=== PATIENT | female | born 1995 | race African-American/Black ===

== ENCOUNTER 2017-02-17 04:08 | Emergency (ER) | payer OTHER ==
[2017-02-17 04:31] LABS: HEMATOCRIT 36.7 % (36.0-48.0); HEMOGLOBIN 12.2 g/dL (12-16); LYMPHOCYTES 29.5 % (15-50); MCH 29.5 pg (26.0-34.0); MCHC 33.2 g/dL (31.0-37.0); MCV 88.9 fL (80.0-100.0); MEAN PLATELET VOLUME 10.3 fL (7.4-10.4); NEUTROPHILS 61.1 % (40-80); PLATELET COUNT 212 10x3/uL (130-400); RBC 4.13 10x6/uL (4.00-5.40); RDW 12.8 % (11.5-14.5); WBC 8.1 10x3/uL (4.8-10.8)
[2017-02-17 04:32] LABS: APPEARANCE HAZY (CLEAR); BACTERIA NONE SEEN /hpf (NONE SEEN); BILIRUBIN NEGATIVE (NEGATIVE); COLOR YELLOW (YELLOW); EPITHELIAL CELLS RARE /hpf (0-5); GLUCOSE NEGATIVE (NEGATIVE); KETONE NEGATIVE (NEGATIVE); NITRITE NEGATIVE (NEGATIVE); PROTEIN NEGATIVE (NEGATIVE); RED CELLS - URINE 0-5 /hpf (0-5); UROBILINOGEN NORMAL (NORMAL); WHITE CELLS - URINE 0-5 /hpf (0-5)
[2017-02-17 04:44] LABS: HCG SERUM NEGATIVE (NEGATIVE)
[2017-02-17 04:52] LABS: ALKALINE PHOSPHATASE 71 U/L (46-116); ALT (SGPT) 18 U/L (10-68); BILIRUBIN - TOTAL 0.21 mg/dL (0.2-1.3); CALC OSMOLALITY 271 mosm/kg (275-300); CALCIUM 8.8 mg/dL (8.5-10.1); CHLORIDE - SERUM 103 mmol/L (98-107); CREATININE - SERUM 0.8 mg/dL (0.6-1.3); GLUCOSE 88 mg/dL (74-106); POTASSIUM - SERUM 3.9 mmol/L (3.5-5.1); PROTEIN - SERUM 7.2 g/dL (6.4-8.2); SODIUM 137 mmol/L (136-145); UREA NITROGEN 10 mg/dL (7-18); eGFR NON AFRICAN AMERICAN > 90 mL/min (90-120)
== END 2017-02-17 05:14 | disposition home or self-care (01) ==
LOC: D.ER 04:08
PROVIDERS: Emergency Medicine
DX: R10.9 Unspecified abdominal pain (principal); N93.9 Abnormal uterine and vaginal bleeding, unspecified; F17.200 Nicotine dependence, unspecified, uncomplicated

== ENCOUNTER → 2017-03-17 12:24 | Outpatient (CLI) | payer MEDICAID | END | disposition home or self-care (01) | LOC: D.US 12:24 | DX: N64.4 Mastodynia (principal) ==

== ENCOUNTER → 2018-02-20 11:58 | Outpatient (CLI) | payer BC ==
[2018-02-20 13:35] LABS: APPEARANCE CLEAR (CLEAR); BACTERIA FEW /hpf (NONE SEEN); BILIRUBIN NEGATIVE (NEGATIVE); COLOR YELLOW (YELLOW); EPITHELIAL CELLS OCC /hpf (0-5); GLUCOSE NEGATIVE (NEGATIVE); KETONE NEGATIVE (NEGATIVE); NITRITE NEGATIVE (NEGATIVE); PROTEIN NEGATIVE (NEGATIVE); RED CELLS - URINE OCC /hpf (0-5); UROBILINOGEN NORMAL (NORMAL); WHITE CELLS - URINE 0-5 /hpf (0-5)
[2018-02-20 13:36] LABS: MUCUS <1+ /lpf (NONE SEEN)
[2018-02-25 03:06] LABS: CHLAMYDIA TRACHOMATIS, NAA Negative (Negative)
== END | disposition home or self-care (01) ==
LOC: D.LDO 11:58
PROVIDERS: Obstetrics & Gynecology
DX: O26.893 Other specified pregnancy related conditions, third trimester (principal); Z3A.33 33 weeks gestation of pregnancy

== ENCOUNTER → 2018-03-15 14:36 | Outpatient (CLI) | payer MEDICAID | END | disposition home or self-care (01) | LOC: D.LDO 14:36 | DX: O26.893 Other specified pregnancy related conditions, third trimester (principal); Z3A.37 37 weeks gestation of pregnancy ==

== ENCOUNTER 2018-03-23 23:53 | Outpatient (CLI) | payer MEDICAID ==
[2018-03-24 00:52] LABS: UDS - AMPHET NEGATIVE QUAL (NEGATIVE); UDS - BARB NEGATIVE QUAL (NEGATIVE); UDS - BENZO NEGATIVE QUAL (NEGATIVE); UDS - COCAINE NEGATIVE QUAL (NEGATIVE); UDS - OPIATE NEGATIVE QUAL (NEGATIVE); UDS - PCP NEGATIVE QUAL (NEGATIVE); UDS - THC NEGATIVE QUAL (NEGATIVE)
[2018-03-24 00:54] LABS: APPEARANCE HAZY (CLEAR); BILIRUBIN NEGATIVE (NEGATIVE); COLOR YELLOW (YELLOW); GLUCOSE NEGATIVE (NEGATIVE); KETONE NEGATIVE (NEGATIVE); NITRITE NEGATIVE (NEGATIVE); PROTEIN NEGATIVE (NEGATIVE); SPECIFIC GRAVITY 1.015 (1.005-1.020); UROBILINOGEN NORMAL (NORMAL)
[2018-03-24 00:58] LABS: BACTERIA MANY /hpf (NONE SEEN); EPITHELIAL CELLS 0-5 /hpf (0-5); RED CELLS - URINE 0-5 /hpf (0-5)
[2018-03-25] MEDS ORDERED: FERROUS SULFAT325 MG PO (06:14)
[2018-03-25 13:33] VITALS: BMI 27.5
== END 2018-03-24 01:12 ==
LOC: D.LDO 23:53 → D.LD 23:53 → D.LDO 03-24 01:12
PROVIDERS: Obstetrics & Gynecology
DX: O26.893 Other specified pregnancy related conditions, third trimester (principal); Z3A.38 38 weeks gestation of pregnancy

== ENCOUNTER 2018-03-25 04:51 | Inpatient (IN) | payer MEDICAID ==
[~2018-03-25] VITALS: Ht 162.6 cm; Wt 72.6 kg
[2018-03-25 05:52] LABS: HEMATOCRIT 29.8 % (36.0-48.0); HEMOGLOBIN 9.3 g/dL (12-16); MCH 25.3 pg (26.0-34.0); MCHC 31.2 g/dL (31.0-37.0); MEAN PLATELET VOLUME 12.9 fL (7.4-10.4); RBC 3.68 10x6/uL (4.00-5.40); RDW 14.9 % (11.5-14.5)
[2018-03-25] MEDS ORDERED: FERROUS SULFAT325 MG PO (06:14)
[2018-03-25 09:01] LABS: UDS - AMPHET NEGATIVE QUAL (NEGATIVE); UDS - BARB NEGATIVE QUAL (NEGATIVE); UDS - BENZO NEGATIVE QUAL (NEGATIVE); UDS - COCAINE NEGATIVE QUAL (NEGATIVE); UDS - OPIATE NEGATIVE QUAL (NEGATIVE); UDS - PCP NEGATIVE QUAL (NEGATIVE); UDS - THC NEGATIVE QUAL (NEGATIVE)
[2018-03-25 13:33] VITALS: BP 127/77; Ht 162.6 cm; Wt 72.6 kg
--- NOTE | 2018-03-25 15:15 | NUR ---
DR SWARTZ CALLED AND NEW ORDERS WERE RECEIVED FOR CHANGE IN PATIENT MEDICATIONS. TYLENOL 1000 MG DC'D. PERCOCET 5 MG 1 PO NOW, TYLENOL #3 1 PO Q4 HOURS PRN. ORDERS WERE READ BACK TO WHO CONCURRED. ORDERS WERE PLACED IN [facility].
--- NOTE | 2018-03-25 15:20 | NUR ---
CALLED FIRE SAFETY MANAGER LIGHT REQUESTING TO GET UP TO BR. ABLE TO MOVE LE WITHOUT DIFFICULTY, LIFT BUTTOCKS OFF BED. DENIES NUMBNESS OR TINGLING. CURRENTLY HOLDING IN ARMS. VISITORS IN ROOM. PT SAT UP ON EDGE OF BED WITHOUT DIFFICULTY. EPIDURAL CATHETER REMOVED WITH TIP INTACT. AMBULATED TO BATHROOM, RUBRA SMALL TO MOD. VOIDED 1000 ML URINE. PERICARE COMPLETED BY PT WITH WARM WATER AND BETADINE. RETURNED TO BED.
--- NOTE | 2018-03-25 15:33 | NUR ---
C/O PERINEAL ACHING PRESSURE 8/10. ONE TIME ORDER FOR PERCOCET 5 MG GIVEN PO FOR RELIEF. WILL TRANSFER TO CLEAN ROOM WHEN AVAILABLE, CLEAN PERIPAD WERE PLACED AND CLEAN UNDERWEAR ON WHEN IN BATHROOM. TUCKS AND DERMOPLAST SPRAY IN ROOM. INSTRUCTED ON USE. FRESH ICE PACK GIVEN. SIDE RAILS UP X 2, CALL LIGHT IN REACH.
--- NOTE | 2018-03-25 16:45 | NUR ---
TRANSFERRED TO CLEAN ROOM 1273. AMBULATED WITHOUT DIFFICULTY. ALL BELONGINGS REMOVED FROM CURRENT ROOM. VISITORS X 3 ASSISTING WITH MOVE. SAYS HER PAIN IS BETTER. NOW 05/27. REMINDED TO USE TUCKS PADS OR DERMOPLAST SPRAY WHEN SHE GETS UP TO BR. VERBALIZED UNDERSTANDING. IN ROOM WITH PT.
--- NOTE | 2018-03-25 19:16 | NUR ---
RN AT PT BS WITH Aleksandar GREEN RN FOR BEDSIDE SHIFT REPORT. RN ASSISTED PT WITH POSITIONING FOR BREASTFEED. PT DENIES ANY FURTHER NEEDS AT THIS TIME. BED IN LOW POSITION, SIDE RAILS UP TIMES 2, CALL LIGHT AND PHONE IN REACH. FAMILY TIMES 3 AT BS FOR SUPPORT AND ASSISTANCE. INFANT REMAINS AT PT BS FOR COUPLET CARE. WILL CONT TO MONITOR PT STATUS.
--- NOTE | 2018-03-25 19:35 | NUR ---
RN AT PT BS. PT SITTING IN BED IN HIGH FOWLERS POSITION, INFANT. PT IN NO ACUTE DISTRESS. 18G SL TO LEFT FA FLUSED AT THIS TIME WITH 5 CC NS WITOUT DIFFICULTY. NO REDNESS, EDEMA, OR DRAINAGE NOTED TO SITE. IVPB OF 250 MG IRON STARTED TO INFUSE VIA PUMP AT 137 ML/HR PER ORDER. IRON INFUSION HUNG WITH 250ML NS MAINLINE. PT C/O PAIN, RATES 7/10, REQUESTS MEDICATION. 1 TAB TYLENOL WITH CONDIENE PROVIDED TO PT AT THIS TIME PER ORDER. WATER MUG REFRESHED. PT DENIES ANY FURTHER NEEDS. BED IN LOW POSITION, SIDE RAILS UP TIMES 2, CALL LIGHT AND PHONE IN REACH. FAMILY TIMES 2 REMAINS AT PT BS FOR SUPPORT AND ASSISTANCE. INFANT REMAINS AT PT BS FOR COUPLET CARE. WILL RETURN TO PERFORM EVERTON WHEN EFFORT IS COMPLETE.
--- NOTE | 2018-03-25 19:45 | NUR ---
RN TO PT BS TO CHECK IVPB INFUSION. INFUSING WITHOUT DIFFICULTY. WILL CONT TO MONITOR.
[2018-03-25 20:15] VITALS: BP 107/65
--- NOTE | 2018-03-25 20:15 | NUR ---
RN TO PT BS FOR EVERTON. PT RESTING IN BED IN HIGH FOWLERS POSITION, TALKING ON PHONE, IN NO ACUTE DISTRESS. PT DISCONNECTS PHONE AND RN PROCEEDS WITH EVERTON. PT IS A 22 YO G2 NOW WITH OF VIABLE FEMALE INFANT TODAY @ 1142. @ 38.3WKS GESTATION. PT WITH 2ND DEGREE LACERATION S/P REPAIR. AAOX3. HR REGULAR. LUNGS CTAB. ABDOMEN SOFT AND NON TENDER. BS ACTIVE TIMES 4. FUNDUS FIRM AND ML @ U. LEON PAD AND PANTIES IN PLACE. PERINIUM APPEARS TO BE INTACT WITH MINIMAL SWELLING NOTED. LOCHIA RUBRA SCANT. PT DENIES DIFFICULTY VOIDING. PT STATES SHE HAS PASSED GAS SINCE BUT HAS NOT HAD A BM SINCE . NO EDEMA NOTED TO UPPER OR LOWER EXTREMITIES BILATERALLY. IRON INFUSING VIA PUMP @ 137 ML/HR TO EXISTING 18G IV IN LEFT FA. NO REDNESS, EDEMA, OR DRAINAGE NOTED TO SITE. PT RATES PAIN 4/10 AFTER ADMINISTRATION OF TYLENOL WITH CODEINE. PT DENIES ANY NEED AT THIS TIME. BED IN LOW POSITION, SIDE RAILS UP TIMES 2, CALL LIGHT AND PHONE IN REACH. NO FAMILY AT BS AT THIS TIME. REMAINS AT PT BS FOR COUPLET CARE. WILL CONT TO MONITOR PT STATUS.
--- NOTE | 2018-03-25 21:04 | NUR ---
RN TO PT BS. PT RESTING IN BED IN SEMI-FOWLERS POSITION, IN NO ACUTE DISTRESS. PT PROVIDED WITH SCHEDULED DOSE OF MOM. PT DENIES ANY FURTHER NEEDS AT THIS TIME. NO FAMILY AT BS. REMAINS AT PT BS FOR SUPPORT AND ASSISTANCE. BED IN LOW POSITION, SIDE RAILS UP TIMES 2, CALL LIGHT AND PHONE IN REACH. WILL CONT TO MONITOR PT STATUS.
--- NOTE | 2018-03-25 21:31 | NUR ---
RN TO PT BS. PT ASSISTED TO BR WITH IV POLE. PT DENIES ANY FURTHER NEEDS AT THIS TIME. WILL CONT TO MONITOR PT STATUS. REMAINS AT PT BS FOR COUPLET CARE.
--- NOTE | 2018-03-25 22:05 | NUR ---
RN TO PT BS. PT SITTING IN BED IN HIGH FOWLERS POSITION, INFANT. PT IN NO ACUTE DISTRESS. INFUSION OF IRON COMPLETE. IV SALINE LOCKED AT THIS TIME. PT DENIES ANY NEEDS. BED IN LOW POSITION, SIDE RAILS UP TIMES 2, CALL LIGHT AND PHONE IN REACH. FAMILY TIMES 1 AT PT BS FOR SUPPORT AND ASSISTANCE. INFANT REMAINS AT PT BS FOR COUPLET CARE. WILL CONT TO MONITOR PT STATUS.
[2018-03-25 23:39] VITALS: BP 113/67
--- NOTE | 2018-03-25 23:40 | NUR ---
RN TO PT BS FOR ROUNDS. PT RESTING IN BED IN SEMI-FOWLERS POSITION, IN NO ACUTE DISTRESS. PT C/O PAIN, RATES 9, REQUESTS MEDICATION. 1 TAB TYLENOL WITH CODEINE PROVIDED TO PT AT THIS TIME. WATER MUG REFRESHED. VS TAKEN AND WNL. PT DENIES ANY FURTHER NEEDS. BED IN LOW POSITION, SIDE RAILS UP TIMES 2, CALL LIGHT AND PHONE IN REACH. FAMILY TIMES 1 REMAINS AT PT BS FOR SUPPORT AND ASSISTANCE. WILL CONT TO MONITOR PT STATUS.
--- NOTE | 2018-03-26 00:37 | NUR ---
RN TO PT BS TO REASSESS PT PAIN. PT RESTING IN BED IN SEMI-FOWLERS POSITION, . PT REPORTS HER PAIN IS NOW 3/10. PT DENIES ANY NEEDS AT THIS TIME. BED IN LOW POSITION, SIDE RAILS UP TIMES 2, CALL LIGHT AND PHONE IN REACH. FAMILY TIMES 1 REMAINS AT PT BS FOR SUPPORT AND ASSISTANCE. INFANT REMAINS AT PT BS FOR COUPLET CARE. WILL CONT TO MONITOR PT STATUS.
--- NOTE | 2018-03-26 02:02 | NUR ---
RN TO PT BS FOR ROUNDS. PT RESTING IN BED IN SEMI-FOWLERS POSITION, WITH EYES CLOSED, IN NO ACUTE DISTRESS. RESPIRATIONS EVEN AND UNLABORED. BED IN LOW POSITION, SIDE RAILS UP TIMES 2, CALL LIGHT AND PHONE IN REACH. FAMILY TIMES 1 REMAINS AT PT BS FOR SUPPORT AND ASSISTANCE. INFANT REMAINS AT PT BS FOR COUPLET CARE. WILL CONT TO MONITOR PT STATUS.
--- NOTE | 2018-03-26 03:38 | NUR ---
RN TO PT BS. PT SITTING IN BED, HOLDING INFANT IN NO ACUTE DISTRESS. PT REQUESTS INFANT BE TRANSPORTED TO NURSERY TO ALLOW PT TO REST. TRANSPORTED TO NURSERY VIA OPEN CRIB, REPORT GIVEN TO NURSERY RN. PT C/O PAIN, RATES 7/10, REQUESTS MEDICATION. 1 TAB TYLENOL WITH CODEINE PROVIDED TO PT. WATER MUG REFRESHED. PT DENIES ANY FURTHER NEEDS AT THIS TIME. BED IN LOW POSITION, SIDE RAILS UP TIMES 2, CALL LIGHT AND PHONE IN REACH. FAMILY TIMES 1 REMAINS AT PT BS FOR SUPPORT AND ASSISTANCE. WILL CONT TO MONITOR PT STATUS.
--- NOTE | 2018-03-26 04:31 | NUR ---
RN TO PT BS FOR ROUNDS. PT RESTING IN BED IN SEMI-FOWLERS POSITION, WITH EYES CLOSED, IN NO ACUTE DISTRESS. RESPIRATIONS EVEN AND UNLABORED. BED IN LOW POSITION, SIDE RAILS UP TIMES 2, CALL LIGHT AND PHONE IN REACH. FAMILY TIMES 1 REMAINS AT PT BS FOR SUPPORT AND ASSISTANCE. WILL CONT TO MONITOR PT STATUS.
--- NOTE | 2018-03-26 06:05 | NUR ---
RN TO PT BS FOR ROUNDS. PT RESTING IN BED IN SEMI-FOWLERS POSITION, WITH EYES CLOSED, IN NO ACUTE DISTRESS. RESPIRATIONS EVEN AND UNLABORED. BED IN LOW POSITION, SIDE RAILS UP TIMES 2, CALL LIGHT AND PHONE IN REACH. FAMILY TIMES 1 AT PT BS FOR SUPPORT AND ASSISTANCE. WILL CONT TO MONITOR PT STATUS AND GIVE REPORT TO AM SHIFT.
[2018-03-26 07:27] VITALS: BP 118/67
--- NOTE | 2018-03-26 07:27 | NUR ---
RECEIVED PT SITTING UP IN BED. MUCH WARMTH SHOWN TOWARDS INFANT. PT VSS. AAO X 3. HRRR WITHOUT AUDIBLE MURMUR. BBS CLEAR. BS X 4. PT STATES PASSING GAS. DENIES BM SINCE ARRIVAL TO HOSPITAL. FUNDUS FIRM AT U/2. RUBRA LOCHIA MOD AMT. PT STATES CHANGED PERIPAD APPROX 20 MINUTES AGO. STATES CHANGING FULL PAD EVERY 1.5 HOURS. PT INSTRUCTED TO LEAVE CHANGED PERIPADS FOR THIS NURSE TO VIEW. PT VERBALIZES UNDERSTANDING. PERINEUM WITH SLIGHT EDEMA NOTED. NO EDEMA NOTED TO BLE. PPP. PT C/O "TINGLING" TO BOTH CALVES. SL TO LEFT WRIST. SITE CLEAR. PT C/O ABDOMINAL CRAMPING AND ACHING PAIN TO PERINEUM OF "6" ON 0-10 PAIN SCALE. PT DECLINES PAIN MED AT THIS TIME. PT STATES "I WILL WAIT ABOUT 45 MINUTES BEFORE I TAKE IT". PT INSTRUCTED TO NOTIFY NURSE WHEN PT WANTS PAIN MEDICATION ADMINISTERED. PT VERBALIZES UNDERSTANDING. FRESH ICE WATER PROVIDED TO PT. PT DENIES NEEDS. SR UP X2. CALL LIGHT IN REACH.
[2018-03-26 07:43] LABS: BASOPHILS 0.2 % (0-2); EOSINOPHILS 0.4 % (0-7); HEMATOCRIT 26.3 % (36.0-48.0); HEMOGLOBIN 8.2 g/dL (12-16); IMMATURE GRANULOCYTES 0.4 % (0-5); LYMPHOCYTES 15.4 % (15-50); MCH 25.2 pg (26.0-34.0); MCHC 31.2 g/dL (31.0-37.0); MCV 80.9 fL (80.0-100.0); MEAN PLATELET VOLUME 11.9 fL (7.4-10.4); NEUTROPHILS 73.6 % (40-80); PLATELET COUNT 137 10x3/uL (130-400); RBC 3.25 10x6/uL (4.00-5.40)
[2018-03-26 07:44] LABS: WBC 10.5 10x3/uL (4.8-10.8)
--- NOTE | 2018-03-26 08:32 | NUR ---
PT SITTING UPRIGHT IN BED. TALKING ON PHONE. LINENS AND PERSONAL CARE ITEMS FOR SHOWER PROVIDED TO PT. PT DENIES C/O OR NEEDS.
--- NOTE | 2018-03-26 08:41 | NUR ---
DR SWARTZ HERE. VISITS WITH PT.
--- NOTE | 2018-03-26 09:36 | NUR ---
PT C/O ABDOMINAL CRAMPING AND ACHING TO PERINEUM OF "9" ON 0-10 PAIN SCALE. TYLENOL #3 1 TAB GIVEN PO ORDERED. PT INSTRUCTED ON MED. VERBALIZES UNDERSTANDING.
--- NOTE | 2018-03-26 10:09 | NUR ---
Lidia Balderas [birth year] LE@ 8:10 S: Patient states this is her first baby. Things have been going really good with latching. Infant has had wet and dirty diapers since yesterday. States she is unsure if baby is getting enough. States it is time to feed now, if CLC would like to look at latching. Denies pain with latching or any other concerns. Verbally agrees to verify is latched correctly with every feeding and to ask for help as needed. States she feel confident with . O: Patient sitting up in bed holding infant and family members in room. Congratulated on delivery and . Asked how can I help with ? Explained normal feeding patterns, breastmilk composition, benefits of skin to skin, infant feeding cues, position, and how to verify is latched correctly at the breast. does take time practice and patience in the beginning. It is normal to be concern about what is taking in when at the breast. Infant being content following feedings and wet/dirty diapers are a sign infant is getting enough. Your body will continue to make what needs as long as is placed to the breast for every feeding. Supply and demand what baby takes out your body will make more of. Observed latching on the left breast, verbally explained to hold tummy to tummy and in front of breast, nose opposite to nipple. latched in cradle position on left breast at 8:55 am. Infant had round cheeks, mouth 140 degrees, sucking in a rocking motion. No discomfort or pain expressed from patient with . Encouraged patient to continue to verify infant is latched correctly with every feeding and practice responsive feeding. Asked if any questions or concerns? Please contact nursery staff as needed with help with . A: Patient unsure if is getting enough when latched to the breast. Expresses no other concerns with at the time. P:Continue to support exclusively during hospital visit. Kamala Campbell, MARISSA
--- NOTE | 2018-03-26 10:15 | NUR ---
PT OOB AND AMB TO BR TO SHOWER. LINENS PROVIDED.
--- NOTE | 2018-03-26 10:59 | NUR ---
PT SITTING UP IN BED. CARING FOR INFANT. STATES PAIN NOW "3" ON 0-10 PAIN SCALE.
--- NOTE | 2018-03-26 12:16 | NUR ---
PT SITTING UP IN BED. DENIES PAIN OR NEEDS. STATES WAITING ON LAB RESULTS FOR INFANT.
--- NOTE | 2018-03-26 13:42 | NUR ---
DR SWARTZ NOTIFIED BEING DISCHARGED TODAY. STATES WILL WORK ON PT DISCHARGE.
--- NOTE | 2018-03-26 14:31 | NUR ---
dr galarza calls concerning unable to pull up pt name to write discharge orders. requesting this nurse to investigate.
--- NOTE | 2018-03-26 14:33 | NUR ---
dr galarza calls back and states that she is putting in orders and for l&d staff to call to pt pharmacy tylenol #3 -may take one tab q6hr prn for pain. number 20 with no refills.
--- NOTE | 2018-03-26 15:00 | NUR ---
SL DC'D WITH [facility]HELON INTACT. PRESSURE BANDAGE TO SITE. PT LILY WELL.
[2018-03-26] MEDS ORDERED: TYLENOL W/CODEI1 TAB PO (15:33)
--- NOTE | 2018-03-26 15:45 | NUR ---
DISCHARGE INSTRUCTIONS GIVEN TO PT. PT VERBALIZES UNDERSTANDING OF ALL INSTRUCTIONS. COPIES GIVEN TO PT. RX FOR TYLENOL #3 CALLED TO [facility].
--- NOTE | 2018-03-26 15:51 | NUR ---
FAMILY AT BEDSIDE.
--- NOTE | 2018-03-26 15:51 | NUR ---
PT REQUESTING SOME BROTH. ICE WATER GIVEN.
--- NOTE | 2018-03-26 15:57 | NUR ---
PT READY FOR DISCHARGE. DISCHARGED IN STABLE CONDITION WITH SECURED IN CARSEAT VIA WHEELCHAIR TO PRIVATE VEHICLE. PT AND LILY WELL.
[2018-03-27 07:26] LABS: RAPID PLASMA REAGIN Non Reactive (Non Reactive)
== END 2018-03-26 15:57 | disposition home or self-care (01) | DRG 807 ==
LOC: D.LDO 04:51 → D.LD 05:14
PROVIDERS: Obstetrics & Gynecology; ADMIT Obstetrics & Gynecology
PROC: 10D07Z6 Extraction of Products of Conception, Vacuum, Via Natural or Artificial Opening (ICD-10-PCS; principal; 2018-03-25)
PROC: 0KQM0ZZ Repair Perineum Muscle, Open Approach (ICD-10-PCS; 2018-03-25)
DX: O99.344 Other mental disorders complicating childbirth (principal); Z37.0 Single live birth; O99.02 Anemia complicating childbirth; Z3A.38 38 weeks gestation of pregnancy; O70.1 Second degree perineal laceration during delivery; O76 Abnormality in fetal heart rate and rhythm complicating labor and delivery